=== PATIENT | female | born 1940 | race Caucasian/White ===

== ENCOUNTER 2016-09-22 | Outpatient (CLI) | payer MEDICARE, BC | END 2016-09-22 15:26 | disposition short-term general hospital (02) | CPT/HCPCS: A0425; A0429; A0888 ==

== ENCOUNTER 2017-06-27 14:13 | Emergency (ER) | payer MEDICARE, BC ==
--- NOTE | 2017-06-27 15:07 | XRAY Preliminary Report ---
Exam: XR CHEST 2 VIEW PA/LAT IMPRESSION: Normal 2-view chest radiography. [facility] SITE ID: [id number]
--- NOTE | 2017-06-27 15:22 | XRAY Report ---
EXAM: CHEST RADIOGRAPHY EXAM DATE: 06/27/2017 02:58 PM. CLINICAL HISTORY: Cough for one week. Chest pain. Chills. COMPARISON: 08/20/2009. TECHNIQUE: 2 views. FINDINGS: Lungs/Pleura: No focal opacities evident. No pleural effusion. No pneumothorax. Normal volumes. Mediastinum: Heart and mediastinal contours are unremarkable. Other: None. IMPRESSION: Normal 2-view chest radiography. [facility] Referring Provider Line: [phone] SITE ID: [id number]
[2017-06-27] MEDS ORDERED: ALBUTEROL NEB 2.5 MG/3 ML INH STA (18:04)
[2017-06-27] MEDS ORDERED: ALBUTEROL NEB 2.5 MG/3 ML INH ONE ×2 (18:20→22:26)
[2017-06-27 18:46] LABS: BASOPHILS % (AUTO) 0.2 %; EOSINOPHILS % (AUTO) 0.1 %; HCT - HEMATOCRIT 46.8 % (37.0-47.0); HGB - HEMOGLOBIN 15.1 g/dL (12.0-16.0); LYMPHOCYTES # (AUTO) 0.8 10^3/uL (1.5-3.5); LYMPHOCYTES % (AUTO) 4.7 %; MEAN CORPUSCULAR HEMOGLOBIN 28.2 pg (27.0-31.0); MEAN CORPUSCULAR HGB CONC 32.3 g/dL (32.0-36.0); MEAN CORPUSCULAR VOLUME 87.4 fL (81.0-99.0); MONOCYTES # (AUTO) 0.8 10^3/uL (0.0-1.0); MONOCYTES % (AUTO) 4.6 %; NEUTROPHILS # (AUTO) 14.9 10^3/uL (1.5-6.6); NEUTROPHILS % (AUTO) 90.4 %; RED BLOOD COUNT 5.35 10^6/uL (4.20-5.40); RED CELL DISTRIBUTION WIDTH 14.2 % (12.0-15.0); UNCORRECTED WHITE BLOOD COUNT 16.4 x10^3/uL; WHITE BLOOD COUNT 16.4 x10^3/uL (4.8-10.8)
[2017-06-27 18:52] LABS: CALCIUM 9.9 mg/dL (8.5-10.3); POTASSIUM 3.6 mmol/L (3.5-5.0)
[2017-06-27] MEDS ORDERED: BENZONATATE 100 MG CAPSULE PO STA (19:00)
[2017-06-27] MEDS ORDERED: guaiFENesin/DEXTROMETHORPHAN 10 ML UDC PO STA (19:00)
[2017-06-27] MEDS ORDERED: DEXAMETHASONE 10 MG/ML VIAL IVP STA (19:00)
[2017-06-27] MEDS ORDERED: LEVALBUTEROL 1.25 MG/0.5 ML NEB INH STA ×2 (19:00→19:43)
--- NOTE | 2017-06-27 19:03 | ED Physician Documentation ---
History of Present Illness - Stated complaint Stated Complaint: SOA,CHEST PX,COUGH - Chief complaint Chief Complaint: Resp - Additonal information Additional information: hx from pt 77 f hx asthma and afib sick with cough and soa for a week now with sharp chest to back pain for several days as well takes daily steroids saw PMD and had steroids inc and using alb q4h in addition to qvar no CXR etc no fever her INR was 1.8 within last week Review of Systems Constitutional: denies: Fever Cardiac: reports: Chest pain / pressure Respiratory: reports: Dyspnea, Cough, Wheezing GI: denies: Abdominal Pain, Nausea, Vomiting Musculoskeletal: reports: Extremity swelling (anabella symm). 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 HEENT: Cataracts, Tonsil/Adenoidectomy - Present Medications Home Medications: Ambulatory Orders Medication Instructions Recorded Confirmed Aspirin [Aspir 81] 81 mg PO DAILY 05/09/13 06/27/17 Lisinopril 10 mg PO DAILY 05/09/13 06/27/17 Metoprolol Succinate [Toprol Xl] 25 mg PO DAILY 05/09/13 06/27/17 Multivitamin [Multivitamins] 1 each PO DAILY 05/09/13 06/27/17 Sertraline [Zoloft] 100 mg PO DAILY 05/09/13 06/27/17 Triamterene/Hydrochlorothiazid 1 each PO DAILY 05/09/13 06/27/17 [Triamterene-Hctz 75-50 mg Tab] Vit D3-Vit K/Berberine/Hops 1 each PO DAILY 05/09/13 04/21/16 [Ostera Tablet] amLODIPine [Norvasc] 10 mg PO DAILY 05/09/13 04/21/16 Beclomethasone Dipropionate [Qvar] 8.7 gm IH BID 05/10/13 06/27/17 Bacillus Coagulans [Probiotic] 1 each PO DAILY 04/21/16 06/27/17 Omeprazole [PriLOSEC] 20 mg PO DAILY 04/21/16 06/27/17 Albuterol 2.5 mg INH Q4H PRN #30 neb 06/27/17 Azithromycin [Zithromax] 250 mg PO DAILY #4 tablet 06/27/17 predniSONE [Deltasone] 60 mg PO DAILY 5 Days tablet 06/27/17 - Allergies Allergies/Adverse Reactions: Allergies Allergy/AdvReac Type Severity Reaction Status Date / Time epinephrine Allergy Severe Respiratory Verified 06/27/17 14:29 codeine [Codeine] Allergy Intermediate Hives Verified 06/27/17 14:29 hydrocodone bitartrate * Allergy Intermediate Hives Verified 06/27/17 14:29 [From Vicodin] morphine Allergy Intermediate Hives Verified 06/27/17 14:29 oxycodone HCl * Allergy Intermediate Hives Verified 06/27/17 14:29 [From Percocet] Sulfa (Sulfonamide Allergy Mild Rash Verified 06/27/17 14:29 Antibiotics) Penicillins Allergy Unknown unsure Verified 06/27/17 14:29 methotrexate Allergy Unknown Verified 06/27/17 14:29 All Narcotics Allergy Intermediate Hives Uncoded 05/10/13 07:27 - Social History Does the pt smoke?: No Smoking Status: Never smoker Does the pt drink ETOH?: No Does the pt have substance abuse?: No - Immunizations Immunizations are current?: Yes PD ED PE NORMAL - Vitals Vital signs reviewed: Yes - General General: Alert and oriented X 3 - Neck Neck: Supple, no meningeal sign - Cardiac Cardiac: RRR - Respiratory Respiratory: No respiratory distress, Other (anabella tight wheezing) - Abdomen Abdomen: Soft, Non tender - Derm Derm: Normal color - Extremities Extremities: Other (anabella symm edema) - Neuro Neuro: Alert and oriented X 3, No motor deficit Results - Vitals Vitals: Vital Signs - 24 hr 06/27/17 06/27/17 06/27/17 14:23 18:14 18:21 Temperature 36.2 C L Heart Rate 70 100 70 Respiratory 20 19 14 Rate Blood Pressure 128/73 153/106 H O2 Saturation 97 69 L 06/27/17 06/27/17 06/27/17 18:41 19:14 19:23 Temperature 36.5 C Heart Rate 67 84 Respiratory 20 18 Rate Blood Pressure 155/66 H O2 Saturation 96 97 06/27/17 06/27/17 20:04 20:47 Temperature Heart Rate 79 85 Respiratory 19 20 Rate Blood Pressure 163/119 H O2 Saturation 97 Oxygen O2 Source Room air - EKG (time done) 1736 Rate: Rate (enter#) (68) Rhythm: Atrial fibrillation Intervals: Normal [place] QRS: Normal Ischemia: Non specific changes (sig artifact ) - Labs Labs: Laboratory Tests 06/27/17 06/27/17 06/27/17 17:50 17:50 17:50 WBC 16.4 H RBC 5.35 Hgb 15.1 Hct 46.8 MCV 87.4 MCH 28.2 MCHC 32.3 RDW 14.2 Plt Count 405 MPV 8.0 Neut # 14.9 H Lymph # 0.8 L [place] # 0.8 Eos # 0.0 Baso # 0.0 Absolute Nucleated RBC 0.00 Nucleated RBC % 0.0 Sodium 133 L Potassium 3.6 Chloride 91 L Carbon Dioxide 27 Anion Gap 15.0 H BUN 26 H Creatinine 1.0 Estimated GFR (MDRD) 54 L Glucose 126 H Calcium 9.9 Troponin I < 0.04 Influenza A (Rapid) Influenza B (Rapid) Influenza Types A,B Ag 06/27/17 19:00 WBC RBC Hgb Hct MCV MCH MCHC RDW Plt Count MPV Neut # Lymph # [place] # Eos # Baso # Absolute Nucleated RBC Nucleated RBC % Sodium Potassium Chloride Carbon Dioxide Anion Gap BUN Creatinine Estimated GFR (MDRD) Glucose Calcium Troponin I Influenza A (Rapid) Negative Influenza B (Rapid) Negative Influenza Types A,B Ag - - Rads (name of study) CXR Radiology: See rad report (NACPD) PD MEDICAL DECISION MAKING - ED course ED course: EKG s acute ischemia and neg trop after days of sx after 7 nebs and steroids she is doing better - still wheezing but moving air well and able to ambulate recommended admit but she decliens will dc with rx for nebs (she has machine but no medication for same just MDI which she cant use when this SOA) inc steroids and given underlying lung dz will rx ab for bronchitis in this case Departure - Departure Disposition: 01 Home, Self Care Clinical Impression: Bronchitis Asthma Qualifiers: Asthma severity: mild Asthma persistence: intermittent Asthma complication type : with acute exacerbation Qualified Code(s): J45.21 - Mild intermittent asthma with (acute) exacerbation Condition: Good Instructions: ED Bronchitis Asthmatic Follow-Up: Joby Wisdom MD [Primary Care Provider] - Prescriptions: Albuterol 2.5 mg INH Q4H PRN #30 neb PRN Reason: Wheezing Azithromycin [Zithromax] 250 mg PO DAILY #4 tablet predniSONE [Deltasone] 60 mg PO DAILY 5 Days tablet Comments: Your heart checked out OK The xray did not show pneumonia It seems you have bronchitis which has aggravated your asthma After 7 nebulizer treatments here, your are better but still wheezing I recommended that you be admitted but you declined because you need to take care of your dog SO I have prescribed solution for your nebulizer machine, increased dose of steroids for 5 days and antibiotics. Use the nebulizer every 4 hr for the next three days then as needed The antibiotics may increase your INR so be sure to get it rechecked this week Follow up with your PMD as soon as possible Return if worse at any time Also your blood pressure was high so please get that rechecked
[2017-06-27] MEDS ORDERED: DEXAMETHASONE 10 MG/ML VIAL ONE (19:13)
[2017-06-27] MEDS ORDERED: guaiFENesin/DEXTROMETHORPHAN 10 ML UDC ONE (19:13)
[2017-06-27] MEDS ORDERED: BENZONATATE 100 MG CAPSULE PO ONE (19:13)
[2017-06-27] MEDS ORDERED: SODIUM CHLORIDE INHALATION 3 ML NEB ONE ×4 (19:17→20:07)
[2017-06-27] MEDS ORDERED: LEVALBUTEROL 1.25 MG/0.5 ML NEB INH ONE ×2 (19:17→20:06)
[2017-06-27 20:48] VITALS: BP 163/119
[2017-06-27] MEDS ORDERED: AZITHROMYCIN 250 MG TABLET PO STA (21:47)
[2017-06-27] MEDS ORDERED: AZITHROMYCIN 250 MG TABLET PO ONE (22:01)
== END 2017-06-27 22:30 | disposition home or self-care (01) ==
LOC: ED 14:13
DX: J45.21 Mild intermittent asthma with (acute) exacerbation (principal); I48.91 Unspecified atrial fibrillation; I10 Essential (primary) hypertension; K21.9 Gastro-esophageal reflux disease without esophagitis; M79.7 Fibromyalgia; Z79.82 Long term (current) use of aspirin
CPT/HCPCS: 36415; 71020; 80048; 84484; 85025; 87275; 87276; 93005; 94640; 96374; 99284; A9270; J7613

== ENCOUNTER 2017-06-30 12:42 | Outpatient (CLI) | payer MEDICARE, BC | END 2017-06-30 12:43 | disposition critical access hospital (66) | LOC: EMS 12:42 | PROVIDERS: ATTEND Surgery | DX: R06.00 Dyspnea, unspecified (principal) | CPT/HCPCS: A0425; A0427 ==

== ENCOUNTER 2017-06-30 12:51 | Inpatient (IN) | payer MEDICARE, BC ==
[2017-06-30 13:31] LABS: BASOPHILS # (AUTO) 0.1 10^3/uL (0.0-0.1); BASOPHILS % (AUTO) 0.4 %; EOSINOPHILS % (AUTO) 0.1 %; HCT - HEMATOCRIT 41.2 % (37.0-47.0); HGB - HEMOGLOBIN 13.6 g/dL (12.0-16.0); LYMPHOCYTES # (AUTO) 0.7 10^3/uL (1.5-3.5); LYMPHOCYTES % (AUTO) 5.3 %; MEAN CORPUSCULAR HEMOGLOBIN 28.6 pg (27.0-31.0); MEAN CORPUSCULAR HGB CONC 32.9 g/dL (32.0-36.0); MEAN CORPUSCULAR VOLUME 86.9 fL (81.0-99.0); MEAN PLATELET VOLUME 7.7 fL (7.9-10.8); MONOCYTES # (AUTO) 1.5 10^3/uL (0.0-1.0); MONOCYTES % (AUTO) 10.8 %; NEUTROPHILS # (AUTO) 11.7 10^3/uL (1.5-6.6); NEUTROPHILS % (AUTO) 83.4 %; RED BLOOD COUNT 4.74 10^6/uL (4.20-5.40); RED CELL DISTRIBUTION WIDTH 14.5 % (12.0-15.0); UNCORRECTED WHITE BLOOD COUNT 14.1 x10^3/uL; WHITE BLOOD COUNT 14.1 x10^3/uL (4.8-10.8)
--- NOTE | 2017-06-30 13:41 | ED Physician Documentation ---
PD HPI DYSPNEA - Stated complaint Stated Complaint: SOA - Chief complaint Chief Complaint: Resp - History obtained from History obtained from: Patient - History of Present Illness Timing - duration: Days (several) Timing - details: Gradual onset Pain level max: 0 Pain level now: 0 Inciting event(s): URI Improved by: Rest Worsened by: Exertion Associated symptoms: Cough, Wheezing, Chest pain / discomfort (tightness). No: Fever Recently seen: Emergency Dept (3 days ago for same) - Additional information Additional information: Patient is a 77-year-old female with a history of COPD who presents to the emergency department with wheezing, congestion for the past several days. Seen here several days ago for same, started on steroids azithromycin and nebulizer treatments. She did not want to be admitted at that time. She then followed up with her doctor but states she is not getting any better. Unable to walk more than a few steps without stopping. Using her nebulizer every 3 hours at home. Also taking steroids at home. No fevers. Review of Systems Ten Systems: 10 systems reviewed and negative Constitutional: denies: Fever, Chills Ears: denies: Ear pain Throat: denies: Sore throat Cardiac: reports: Chest pain / pressure (tightness) GI: denies: Abdominal Pain, Nausea, Vomiting, Diarrhea Skin: denies: Rash Musculoskeletal: denies: Neck pain Neurologic: denies: Headache PD PAST MEDICAL HISTORY - Past Medical History Cardiovascular: Hypertension, Atrial fibrillation Respiratory: Asthma, Other Endocrine/Autoimmune: None GI: GERD : None HEENT: Chronic hearing loss Psych: Depression Musculoskeletal: Osteoarthritis, Fibromyalgia, Osteoporosis, Other Derm: None - Past Surgical History Past Surgical History: Yes General: Appendectomy, Hiatal hernia repair, Colonoscopy 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 HEENT: Cataracts, Tonsil/Adenoidectomy - Present Medications Home Medications: Ambulatory Orders Medication Instructions Recorded Confirmed Aspirin [Aspir 81] 81 mg PO DAILY 05/09/13 06/30/17 Lisinopril 10 mg PO DAILY 05/09/13 06/30/17 Multivitamin [Multivitamins] 1 each PO DAILY 05/09/13 06/30/17 Sertraline [Zoloft] 100 mg PO 2100 05/09/13 06/30/17 amLODIPine [Norvasc] 10 mg PO DAILY 05/09/13 06/30/17 Beclomethasone Dipropionate [Qvar] 8.7 gm IH BID 05/10/13 06/30/17 Bacillus Coagulans [Probiotic] 1 each PO DAILY 04/21/16 06/30/17 Omeprazole [PriLOSEC] 20 mg PO DAILY 04/21/16 06/30/17 Albuterol 2.5 mg INH Q4H PRN #30 neb 06/27/17 06/30/17 Azithromycin [Zithromax] 250 mg PO DAILY #4 tablet 06/27/17 06/30/17 predniSONE [Deltasone] 60 mg PO DAILY 5 Days tablet 06/27/17 06/30/17 Baclofen 10 mg PO BID 06/30/17 06/30/17 Benzonatate 100 mg PO TID PRN 06/30/17 06/30/17 Cetirizine [ZyrTEC] 10 mg PO DAILY 06/30/17 06/30/17 Ipratropium/Albuterol Sulfate 3 ml INH Q6H PRN 06/30/17 06/30/17 [Iprat-Albut 0.5-3(2.5) mg/3 ml] Leflunomide 20 mg PO DAILY 06/30/17 06/30/17 Magnesium Oxide 500 mg PO DAILY 06/30/17 06/30/17 Metoprolol Succinate 75 mg PO DAILY PM 06/30/17 06/30/17 Warfarin Sodium [Warfarin Sodium] 5 mg PO DAILY 06/30/17 06/30/17 - Allergies Allergies/Adverse Reactions: Allergies Allergy/AdvReac Type Severity Reaction Status Date / Time epinephrine Allergy Severe Respiratory Verified 06/30/17 12:58 codeine [Codeine] Allergy Intermediate Hives Verified 06/30/17 12:58 hydrocodone bitartrate * Allergy Intermediate Hives Verified 06/30/17 12:58 [From Vicodin] morphine Allergy Intermediate Hives Verified 06/30/17 12:58 oxycodone HCl * Allergy Intermediate Hives Verified 06/30/17 12:58 [From Percocet] Sulfa (Sulfonamide Allergy Mild Rash Verified 06/30/17 12:58 Antibiotics) Penicillins Allergy Unknown unsure Verified 06/30/17 12:58 methotrexate Allergy Unknown Verified 06/30/17 12:58 All Narcotics Allergy Intermediate Hives Uncoded 06/30/17 12:58 - Social History Does the pt smoke?: No Smoking Status: Never smoker Does the pt drink ETOH?: No Does the pt have substance abuse?: No - Immunizations Immunizations are current?: Yes - POLST Patient has POLST: No PD ED PE NORMAL - Vitals Vital signs reviewed: Yes - General General: Alert and oriented X 3, Other (pursed lip breathing) - HEENT HEENT: PERRL, Moist mucous membranes - Neck Neck: Supple, no meningeal sign - Cardiac Cardiac: RRR - Respiratory Respiratory: Other (tachypneic. very diminished BS with wheezing) - Abdomen Abdomen: Soft, Non tender, Non distended - Derm Derm: Warm and dry - Extremities Extremities: No deformity - Neuro Neuro: Alert and oriented X 3 - Psych Psych: Normal mood, Normal affect Results - Vitals Vitals: Vital Signs - 24 hr 06/30/17 06/30/17 06/30/17 12:52 14:05 15:01 Temperature 36.4 C L Heart Rate 73 88 66 Respiratory 24 18 24 Rate Blood Pressure 168/145 H 148/101 H O2 Saturation 96 100 06/30/17 15:30 Temperature Heart Rate 70 Respiratory 18 Rate Blood Pressure 154/91 H O2 Saturation 100 Oxygen O2 Source Room air - EKG (time done) 1255 Rate: Rate (enter#) (76) Rhythm: NSR [place]: Normal Intervals: Normal [place] QRS: Normal Ischemia: Normal ST segments - Labs Labs: Laboratory Tests 06/30/17 06/30/17 06/30/17 13:22 13:22 13:22 WBC 14.1 H RBC 4.74 Hgb 13.6 Hct 41.2 MCV 86.9 MCH 28.6 MCHC 32.9 RDW 14.5 Plt Count 311 MPV 7.7 L Neut # 11.7 H Lymph # 0.7 L [place] # 1.5 H Eos # 0.0 Baso # 0.1 Absolute Nucleated RBC 0.00 Nucleated RBC % 0.0 Sodium 134 L Potassium 3.7 Chloride 96 L Carbon Dioxide 25 Anion Gap 13.0 BUN 34 H Creatinine 0.9 Estimated GFR (MDRD) 61 L Glucose 111 H Calcium 9.2 Total Bilirubin 0.6 AST 28 ALT 29 Alkaline Phosphatase 50 Troponin I < 0.04 Total Protein 6.5 L Albumin 3.4 Globulin 3.1 Albumin/Globulin Ratio 1.1 Lipase 34 - Rads (name of study) cxr Radiology: Prelim report reviewed, EMP read contemporaneously, See rad report ( No acute disease) PD MEDICAL DECISION MAKING - ED course Complexity details: reviewed old records, reviewed results, re-evaluated patient , considered differential, d/w patient ED course: Patient is a 77-year-old female who presents to the emergency department with continued wheezing, appears to be a COPD flare. No pneumonia on chest x-ray. Does have a leukocytosis, but has also been on steroids. She did improve slightly with nebulizer treatment but as she is using her nebulizer increasingly frequently at home and she becomes very short of breath with even minimal exertion in the emergency department despite nebulizer treatment, will place her in observation for further care. Discussed the case with Dr. Vences, hospitalist who accepts. This document was made in part using voice recognition software. While efforts are made to proofread this document, sound alike and grammatical errors may occur. Departure - Departure Disposition: ED Place in Observation Clinical Impression: COPD exacerbation Leukocytosis Qualifiers: Leukocytosis type: unspecified Qualified Code(s): D72.829 - Elevated white blood cell count, unspecified Condition: Stable Discharge Date/Time: 06/30/17 16:00
--- NOTE | 2017-06-30 13:41 | XRAY Preliminary Report ---
Exam: XR CHEST 1 VIEW IMPRESSION: Normal single view chest. [facility] SITE ID: [id number]
[2017-06-30 13:44] LABS: ALBUMIN/GLOBULIN RATIO 1.1 (1.0-2.2); BILIRUBIN,TOTAL 0.6 mg/dL (0.2-1.0); CALCIUM 9.2 mg/dL (8.5-10.3); CREATININE 0.9 mg/dL (0.4-1.0); POTASSIUM 3.7 mmol/L (3.5-5.0); TOTAL PROTEIN 6.5 g/dL (6.7-8.2)
--- NOTE | 2017-06-30 13:45 | XRAY Report ---
EXAM: CHEST RADIOGRAPHY EXAM DATE: 06/30/2017 01:17 PM. CLINICAL HISTORY: Chest pain. COMPARISON: 06/27/2017. TECHNIQUE: 1 view. FINDINGS: Lungs/Pleura: No focal opacities evident. No pleural effusion. No pneumothorax. Mediastinum: Within exam limitations, the cardiomediastinal contour is normal. Other: None. IMPRESSION: Normal single view chest. [facility] Referring Provider Line: [phone] SITE ID: [id number]
[2017-06-30] MEDS ORDERED: IPRATROPIUM/ALBUTEROL 3 ML NEB INH STA (13:49)
[2017-06-30] MEDS ORDERED: methylPREDNISolone SUCCINATE 125 MG/2 ML VIAL IVP STA (13:49)
[2017-06-30] MEDS ORDERED: SODIUM CHLORIDE 0.9% 1,000 ML IV ONE (13:55)
[2017-06-30] MEDS ORDERED: IPRATROPIUM/ALBUTEROL 3 ML NEB INH ONE (14:02)
[2017-06-30] MEDS ORDERED: ACETAMINOPHEN 325 MG TABLET PO PRN (15:36)
[2017-06-30] MEDS ORDERED: ONDANSETRON 4 MG/2 ML VIAL IVP PRN (15:36)
[2017-06-30] MEDS ORDERED: SODIUM CHLORIDE FLUSH 0.9% 10 ML SYRINGE IVP PRN (15:36)
[2017-06-30] MEDS ORDERED: ALBUTEROL NEB 2.5 MG/3 ML INH PRN (15:50)
--- NOTE | 2017-06-30 15:55 | HISTORY & PHYSICAL EXAMINATION ---
Chief Complaint - Chief Complaint Chief Complaint: cough, shortness of breathing, difficult to walk History of Present Illness - Admitted From Admitted From:: ER - History Obtained From History obtained from: Pt - History of Present Illness HPI Comment/Other: This is a 77-year-old female with a past medical history significance for COPD, essential tremor, polymyalgia Rheumatica, Obesity, HTN, AFib with Coumadin, Asthma, GERD, Chronic hearing loss, Depression, Osteoarthritis, Osteoporsis, Fibromyalgia, who present ER for evaluation of wheezing, shortness of breathing, Cough. Patient report she came to ER several days ago, she got the treatment but she feel not better. She report she was unable to walk more than a few steps without stopping. She report she used nebulizer and steroids at home. She report some chest tightness from anterior radiated to her back. She report cough without much sputum. She denies fever, chill, night sweating. She denies headache, abdominal pain, nausea, vomiting, diarrhea. No dysuria, hematuria, vision issue. Lab test reveals elevated WBC to 14.1. CXR is unremarkable. Pt is admitted for evaluation of COPD exacerbation. 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 HEENT: reports: Cataracts, Tonsil/Adenoidectomy - Family & Social History Living arrangement: At home Living Situation: Alone - Substance History Use: Uses substance without health or social issues: NONE Abuse: Recurrent use of substance despite neg consequences: NONE - POLST Patient has POLST: No POLST Status: DNR Meds/Allgy - Home Medications Home Medications: Ambulatory Orders Medication Instructions Recorded Confirmed Lisinopril 10 mg PO DAILY 05/09/13 06/30/17 Multivitamin [Multivitamins] 1 each PO DAILY 05/09/13 06/30/17 Sertraline [Zoloft] 100 mg PO 2100 05/09/13 06/30/17 amLODIPine [Norvasc] 10 mg PO DAILY 05/09/13 06/30/17 Bacillus Coagulans [Probiotic] 1 each PO DAILY 04/21/16 06/30/17 Albuterol 2.5 mg INH Q4H PRN #30 neb 06/27/17 06/30/17 predniSONE [Deltasone] 60 mg PO DAILY 5 Days tablet 06/27/17 06/30/17 Baclofen 10 mg PO TID PRN 06/30/17 07/01/17 Benzonatate 100 mg PO TID PRN 06/30/17 06/30/17 Cetirizine [ZyrTEC] 10 mg PO DAILY 06/30/17 06/30/17 Ipratropium/Albuterol Sulfate 3 ml INH Q6H PRN 06/30/17 06/30/17 [Iprat-Albut 0.5-3(2.5) mg/3 ml] Leflunomide 20 mg PO DAILY 06/30/17 06/30/17 Magnesium Oxide 500 mg PO DAILY 06/30/17 06/30/17 Metoprolol Succinate 75 mg PO DAILY PM 06/30/17 06/30/17 Warfarin Sodium [Warfarin Sodium] 5 mg PO DAILY 06/30/17 06/30/17 Beclomethasone 80 Mcg [Qvar 80] 1 puffs INH BID 07/01/17 07/01/17 Calcium Carbonate/Vitamin D3 1 each PO DAILY 07/01/17 07/01/17 [Calcium 600 + Vit D 400 Tablet] Garlic 500 mg PO DAILY 07/01/17 07/01/17 Triamterene/Hydrochlorothiazid 1 tab PO DAILY 07/01/17 07/01/17 [Triamterene-Hctz 37.5-25 mg Tb] Vitamin B Complex 1 each PO DAILY 07/01/17 07/01/17 - Allergies Allergies/Adverse Reactions: Allergies Allergy/AdvReac Type Severity Reaction Status Date / Time epinephrine Allergy Severe Respiratory Verified 06/30/17 12:58 codeine [Codeine] Allergy Intermediate Hives Verified 06/30/17 12:58 hydrocodone bitartrate * Allergy Intermediate Hives Verified 06/30/17 12:58 [From Vicodin] morphine Allergy Intermediate Hives Verified 06/30/17 12:58 oxycodone HCl * Allergy Intermediate Hives Verified 11/17/17 12:58 [From Percocet] Sulfa (Sulfonamide Allergy Mild Rash Verified 06/30/17 12:58 Antibiotics) Penicillins Allergy Unknown unsure Verified 06/30/17 12:58 methotrexate Allergy Unknown Verified 06/30/17 12:58 All Narcotics Allergy Intermediate Hives Uncoded 06/30/17 12:58 Review of Systems - Constitutional Constitutional: reports: Weakness. denies: Fatigue, Fever, Chills, Malaise, Diaphoresis, Night sweats - Eyes Eyes: denies: Pain, Irritation, Amaurosis, Blurred vision, Spots in vision, Field loss, Vision loss, Dipolpia - Ears, Nose & Throat Ears, Nose & Throat: reports: Hearing loss. denies: Ear pain, Hearing aids, Tinnitus, Vertigo, Nasal pain, Nasal discharge, Nosebleeds, Postnasal drainage, Sore throat, Mouth lesions, Bleeding gums - Cardiovascular Cariovascular: denies: Irregular heart rate, Palpitations, Chest pain, Edema, Lightheadedness, Syncope, Exertional dyspnea, Decr. exercise tolerance - Respiratory Respiratory: reports: Cough, Sputum production, Wheezing, SOB with exertion. denies: Snoring, Hemoptysis, Orthopnea, SOB at rest, Apnea, Stridor - Gastrointestinal Gastrointestinal: denies: Abdominal pain, Abdominal distention, Constipation, Diarrhea, Change in bowel habits, Rectal bleeding, Black stools, Bloody stools, Nausea, Vomiting, Ck blood emesis, Coffee grounds emesis - Genitourinary Genitourinary: denies: Dysuria, Frequency, Urgency, Hematuria, Incontinence, Flank pain, Urethral discharge - Musculoskeletal Musculoskeletal: denies: Muscle pain, Back pain, Muscle aches, Stiffness, Limited range of motion, Muscle weakness, Gout, Joint pain - Integumentary Integumentary: denies: Rash, Pruritis, Lesions, Dryness, Lumps - Neurological Neurological: denies: Focal weakness, Headache, Dizziness, Numbness, Memory problems, Pre-existing deficit, Abnormal gait, Seizures, Incoordination, Slurred speech - Psychiatric Psychiatric: denies: Depression, Anxiety, Suicidal, Delusions, Hallucinations, Homicidal - Endocrine Endocrine: denies: Polyuria, Polydypsia, Polyphagia, Intolerance to cold - Hematologic/Lymphatic Hematologic/Lymphatic: denies: Anemia, Bruising, Petechiae, Blood clots, Lymphadenopathy, Bleeding tendencies Exam - Vital Signs Reviewed Vital Signs: Yes Vital Signs: Vital Signs x48h Temp Pulse Resp BP Pulse Ox 06/30/17 15:01 66 24 148/101 H 100 06/30/17 14:05 88 18 06/30/17 12:52 36.4 C L 73 24 168/145 H 96 - Physical Exam General Appearance: positive: No acute distress, Alert. negative: Lethargic Eyes Bilateral: positive: Normal inspection, PERRL, No lid inflammation, Conjunctivae nml ENT: positive: ENT inspection nml, Pharynx nml, No signs of dehydration. negative: Purulent nasal drainage, Pharyngeal erythema, Oral lesions Neck: positive: Nml inspection, Thyroid nml, Trachea midline. negative: Thyromegaly, Lymphadenopathy (R), Lymphadenopathy (L), Stiff neck, Carotid bruit , Swelling/bruising, Tracheal deviation Respiratory: positive: Chest non-tender, No respiratory distress, Wheezes. negative: Rales, Rhonchi Cardiovascular: positive: Regular rate & rhythm, No murmur, No gallop. negative : Irregularly irregular, Extrasystoles, Tachycardia, Bradycardia, Systolic murmur, Diastolic murmur Peripheral Pulses: positive: 2+ Abdomen: positive: Non-tender, Nml bowel sounds. negative: Tenderness, Guarding , Rebound Back: positive: Nml inspection. negative: CVA tenderness (R), CVA tenderness (L ) Skin: positive: Color nml, No rash, Warm, Dry. negative: Cyanosis, Diaphoresis , Pallor, Skin rash Extremities: positive: Non-tender, Full ROM, Nml appearance. negative: Calf tenderness, Joint swelling, Jose's sign/cords Neurologic/Psychiatric: positive: Oriented x3, Motor nml, Sensation nml, Mood/ affect nml, Weakness. negative: Sensory loss, Facial droop, Slurred/abnml speech, Depressed mood/affect Conclusion/Plan - Problem List (1) COPD exacerbation Conclusion/Plan: pt is wheezing, SOB, hx of COPD, pt feel better after treatment of INH and steroid continue Duoneb solu-metrol O2 NC PRN, RT consult continue vital, tele monitor (2) Afib Conclusion/Plan: stable HR, continue Coumadin check PT/INR continue tele, vital monitor (3) Essential tremor Conclusion/Plan: pt report she has essential tremor since she was 13 yrs. continue home regime, continue support (4) Polymyalgia rheumatica Conclusion/Plan: pain is good control. pt took Steroid 20 mg at home now pt has solu-metrol for COPD exacerbation, continue current treatment (5) HTN (hypertension) Conclusion/Plan: stable, resume home meds vital monitor (6) Asthma Conclusion/Plan: since stable, after treatment with steroid and INH Abulteral PRN (7) Osteoarthritis Conclusion/Plan: pain control, support. - Lab Results Fish Bones: 07/01/17 05:53 07/01/17 05:53 Issues/Core Measures - Anticipated LOS Anticipated Stay Length: Less than 2 midnights (expected less than 2 midnights)
[2017-06-30] MEDS: IPRATROPIUM/ALBUTEROL 3 ML NEB INH PRN (19:47)
[2017-06-30] MEDS: BACLOFEN 10 MG TABLET PO SCH (21:05)
[2017-06-30] MEDS: SODIUM CHLORIDE FLUSH 0.9% 10 ML SYRINGE IVP SCH (21:06)
[2017-06-30] MEDS: methylPREDNISolone SUCCINATE 40 MG/ML VIAL IVP SCH (21:06)
[2017-07-01] MEDS: methylPREDNISolone SUCCINATE 40 MG/ML VIAL IVP SCH ×3 (05:54→21:14)
[2017-07-01] MEDS: SODIUM CHLORIDE FLUSH 0.9% 10 ML SYRINGE IVP SCH ×3 (05:54→21:13)
[2017-07-01 06:18] LABS: BASOPHILS % (AUTO) 0.2 %; HCT - HEMATOCRIT 40.3 % (37.0-47.0); HGB - HEMOGLOBIN 13.1 g/dL (12.0-16.0); LYMPHOCYTES # (AUTO) 0.3 10^3/uL (1.5-3.5); LYMPHOCYTES % (AUTO) 4.1 %; MEAN CORPUSCULAR HEMOGLOBIN 28.5 pg (27.0-31.0); MEAN CORPUSCULAR HGB CONC 32.5 g/dL (32.0-36.0); MEAN CORPUSCULAR VOLUME 87.7 fL (81.0-99.0); MONOCYTES # (AUTO) 0.3 10^3/uL (0.0-1.0); NEUTROPHILS # (AUTO) 6.6 10^3/uL (1.5-6.6); NEUTROPHILS % (AUTO) 91.7 %; RED BLOOD COUNT 4.59 10^6/uL (4.20-5.40); RED CELL DISTRIBUTION WIDTH 14.3 % (12.0-15.0); UNCORRECTED WHITE BLOOD COUNT 7.2 x10^3/uL; WHITE BLOOD COUNT 7.2 x10^3/uL (4.8-10.8)
[2017-07-01 06:35] LABS: ALBUMIN/GLOBULIN RATIO 1.2 (1.0-2.2); BILIRUBIN,TOTAL 0.6 mg/dL (0.2-1.0); CALCIUM 8.9 mg/dL (8.5-10.3); CREATININE 0.8 mg/dL (0.4-1.0); MAGNESIUM 1.9 mg/dL (1.7-2.8); POTASSIUM 3.7 mmol/L (3.5-5.0); TOTAL PROTEIN 6.4 g/dL (6.7-8.2)
[2017-07-01] MEDS: POLYETHYLENE GLYCOL 3350 17 GM PACKET PO SCH (08:40)
[2017-07-01] MEDS: LACTOB/S.THERMOPHL/BIFIDO CAPSULE PO SCH (08:55)
[2017-07-01] MEDS: LISINOPRIL 5 MG TABLET PO SCH (08:55)
[2017-07-01] MEDS: LEFLUNOMIDE 20 MG PO SCH (08:55)
[2017-07-01] MEDS: AZITHROMYCIN 250 MG TABLET PO SCH (08:55)
[2017-07-01] MEDS: amLODIPine 5 MG TABLET PO SCH (08:55)
[2017-07-01] MEDS: SERTRALINE 50 MG TABLET PO SCH (08:55)
[2017-07-01] MEDS: MULTIVITAMIN TABLET PO SCH (08:56)
[2017-07-01] MEDS: FAMOTIDINE 20 MG TABLET PO SCH (08:56)
[2017-07-01] MEDS: BACLOFEN 10 MG TABLET PO SCH ×2 (08:56→21:16)
[2017-07-01] MEDS: METOPROLOL SUCCINATE 25 MG TABLET PO SCH (08:56)
[2017-07-01] MEDS ORDERED: ENOXAPARIN 40 MG/0.4 ML SYRINGE SUBQ SCH (09:00)
[2017-07-01] MEDS ORDERED: ASPIRIN EC 81 MG TABLET PO SCH (09:00)
[2017-07-01] MEDS: VIT D3 VIT K PO SCH (09:44)
[2017-07-01] MEDS: HOPS PO SCH (09:44)
[2017-07-01] MEDS: BERBERINE PO SCH (09:44)
[2017-07-01] MEDS ORDERED: BENZONATATE 100 MG CAPSULE PO PRN (10:13)
[2017-07-01] MEDS: CETIRIZINE 10 MG TABLET PO SCH (12:09)
[2017-07-01] MEDS ORDERED: WARFARIN 5 MG TABLET PO SCH (14:00)
[2017-07-01] MEDS: IPRATROPIUM/ALBUTEROL 3 ML NEB INH PRN ×2 (14:15→18:10)
--- NOTE | 2017-07-01 15:01 | PROVIDER PROGRESS NOTE ---
Subjective - Prog Note Date Prog Note Date: 07/01/17 - Subjective Pt reports feeling: Improved Subjective: pt state she feel better breathing. no chest pain, or other complains reported Current Medications - Current Medications Current Medications: Active Medications Acetaminophen (Tylenol) 650 mg PO Q4HR PRN PRN Reason: Pain 1 to 4 Albuterol () 2.5 mg INH Q4H PRN PRN Reason: Wheezing Last Admin: 07/01/17 00:09 Dose: 2.5 mg Albuterol/Ipratropium (Duoneb) 3 ml INH Q4HR PRN PRN Reason: Wheezing Last Admin: 07/01/17 14:15 Dose: 3 ml Amlodipine Besylate (Norvasc) 10 mg PO DAILY [facility] Last Admin: 07/01/17 08:55 Dose: 10 mg Aspirin (Ecotrin) 81 mg PO DAILY [facility] Last Admin: 07/01/17 08:56 Dose: 81 mg Azithromycin (Zithromax) 500 mg PO DAILY [facility] Stop: 07/02/17 23:00 Last Admin: 07/01/17 08:55 Dose: 500 mg Baclofen (Lioresal) 10 mg PO BID [facility] Last Admin: 07/01/17 08:56 Dose: 10 mg Benzonatate (Tessalon) 100 mg PO TID PRN PRN Reason: Cough Last Admin: 07/01/17 12:10 Dose: 100 mg Calcium Carbonate/Glycine (Tums) 500 mg PO DAILY [facility] Cetirizine HCl (Zyrtec) 10 mg PO DAILY [facility] Last Admin: 07/01/17 12:09 Dose: 10 mg Cholecalciferol (Vitamin D3) 400 unit PO DAILY [facility] Enoxaparin Sodium (Lovenox) 40 mg SUBQ DAILY [facility] Last Admin: 07/01/17 08:56 Dose: 40 mg Famotidine (Pepcid) 20 mg PO DAILY [facility] Last Admin: 07/01/17 08:56 Dose: 20 mg Lactobacil/Bifidobact/Streptococcus (Vsl#3) 1 cap PO DAILY [facility] Last Admin: 07/01/17 08:55 Dose: 1 cap Lisinopril (Zestril) 10 mg PO DAILY [facility] Last Admin: 07/01/17 08:55 Dose: 10 mg [facility]esium [facility] (Mag Ox) [facility] Methylprednisolone (Solu-Medrol (40mg Vial)) 60 mg IVP TID [facility] Last Admin: 07/01/17 14:25 Dose: 60 mg Metoprolol Succinate (Toprol Xl) 25 mg PO DAILY [facility] Last Admin: 07/01/17 08:56 Dose: 25 mg Multivitamins (Theragran) 1 tab PO DAILYWM [facility] Last Admin: 07/01/17 08:56 Dose: 1 tab Non-Formulary Medication (Vit D3-Vit K/Berberine/Hops [Ostera Tablet]) 1 each PO DAILY [facility] Last Admin: 07/01/17 09:44 Dose: Not Given Ondansetron HCl (Zofran Inj) 4 mg IVP Q6HR PRN PRN Reason: Nausea / Vomiting Patient Own Medication (Patient Own Medication) 1 each PO DAILY [facility] Last Admin: 07/01/17 08:55 Dose: 1 each Patient Own Medication (Patient Own Medication) 1 each PO DAILY [facility] Vitamin B Complex 1 each PO DAILY [facility] Polyethylene Glycol (Miralax) 17 gm PO DAILY [facility] Last Admin: 07/01/17 08:40 Dose: Not Given Sertraline HCl (Zoloft) 100 mg PO DAILY [facility] Last Admin: 07/01/17 08:55 Dose: 100 mg Sodium Chloride (Normal Saline Flush 0.9%) 10 ml IVP PRN PRN PRN Reason: NEEDED PER PROVIDER ORDERS Sodium Chloride (Normal Saline Flush 0.9%) 10 ml IVP Q8HR [facility] Last Admin: 07/01/17 14:25 Dose: 10 ml Triamterene/HCTZ (Dyazide) 1 cap PO DAILY [facility] Warfarin Sodium (Coumadin) 5 mg PO QDWARFARIN [facility] Lisinopril 10 mg PO DAILY 05/09/13 Multivitamin [Multivitamins] 1 each PO DAILY 05/09/13 Sertraline [Zoloft] 100 mg PO 2100 05/09/13 amLODIPine [Norvasc] 10 mg PO DAILY 05/09/13 Bacillus Coagulans [Probiotic] 1 each PO DAILY 04/21/16 Baclofen 10 mg PO TID PRN 06/30/17 Benzonatate 100 mg PO TID PRN 06/30/17 Cetirizine [ZyrTEC] 10 mg PO DAILY 06/30/17 Ipratropium/Albuterol Sulfate [Iprat-Albut 0.5-3(2.5) mg/3 ml] 3 ml INH Q6H PRN 06/30/17 Leflunomide 20 mg PO DAILY 06/30/17 Magnesium Oxide 500 mg PO DAILY 06/30/17 Metoprolol Succinate 75 mg PO DAILY PM 06/30/17 Warfarin Sodium [Warfarin Sodium] 5 mg PO DAILY 06/30/17 Beclomethasone 80 Mcg [Qvar 80] 1 puffs INH BID 07/01/17 Calcium Carbonate/Vitamin D3 [Calcium 600 + Vit D 400 Tablet] 1 each PO DAILY Garlic 500 mg PO DAILY 07/01/17 Triamterene/Hydrochlorothiazid [Triamterene-Hctz 37.5-25 mg Tb] 1 tab PO DAILY 07/01/17 Vitamin B Complex 1 each PO DAILY 07/01/17 Objective - Vital Signs/Intake & Output Reviewed Vital Signs: Yes Vital Signs: Vital Signs x48h Temp Pulse Pulse Resp BP Pulse Ox 07/01/17 14:16 88 18 07/01/17 11:52 36.9 C 79 19 130/54 L 95 Intake & Output: Intake & Output 06/28/17 06/29/17 06/30/17 07/01/17 23:59 23:59 23:59 23:59 Intake Total 240 Balance 240 - Objective General Appearance: positive: No acute distress, Alert. negative: Lethargic Eyes Bilateral: positive: Normal inspection, PERRL, No lid inflammation, Conjunctivae nml ENT: positive: ENT inspection nml, Pharynx nml, No signs of dehydration. negative: Purulent nasal drainage, Pharyngeal erythema, Oral lesions Neck: positive: Nml inspection, Thyroid nml, Trachea midline. negative: Thyromegaly, Lymphadenopathy (R), Lymphadenopathy (L), Stiff neck, Carotid bruit , Swelling/bruising, Tracheal deviation Respiratory: positive: Chest non-tender, No respiratory distress, Wheezes. negative: Rales, Rhonchi Cardiovascular: positive: Regular rate & rhythm, No murmur, No gallop. negative : Irregularly irregular, Extrasystoles, Tachycardia, Bradycardia, Systolic murmur, Diastolic murmur Peripheral Pulses: 2+ Radial (R), 2+ Radial (L), 2+ Dorsalis pedis (R), 2+ Dorsalis pedis (L) Abdomen: positive: Non-tender, Nml bowel sounds, No distention. negative: Tenderness, Guarding, Rebound Back: positive: Nml inspection. negative: CVA tenderness (R), CVA tenderness (L ) Skin: positive: Color nml, No rash, Warm, Dry. negative: Cyanosis, Diaphoresis , Pallor, Skin rash Extremities: positive: Non-tender, Full ROM, Nml appearance. negative: Calf tenderness, Joint swelling, Jose's sign/cords Neurologic/Psychiatric: positive: Oriented x3, Motor nml, Sensation nml, Mood/ affect nml. negative: Sensory loss, Facial droop, Slurred/abnml speech, Depressed mood/affect - Lab Results Fish Bones: 07/01/17 05:53 07/01/17 05:53 Assessment/Plan - Problem List (1) COPD exacerbation Impression: (1) COPD exacerbation Conclusion/Plan: wheezing is better, pt state she feel better continue solu-metrol, and reduce dosage of solu-medrol Duoneb continue monitor pt is wheezing, SOB, hx of COPD, pt feel better after treatment of INH and steroid continue Duoneb solu-metrol O2 NC PRN, RT consult continue vital, tele monitor (2) Afib Conclusion/Plan: continue Coumadin, check PT/INR stable HR, continue Coumadin check PT/INR continue tele, vital monitor (3) Essential tremor Conclusion/Plan: continue support pt report she has essential tremor since she was 13 yrs. continue home regime, continue support (4) Polymyalgia rheumatica Conclusion/Plan: pain is good control. pt took Steroid 20 mg at home now pt has solu-metrol for COPD exacerbation, continue current treatment (5) HTN (hypertension) Conclusion/Plan: stable, continue vital monitor stable, resume home meds vital monitor (6) Asthma Conclusion/Plan: since stable, after treatment with steroid and INH Abulteral PRN (7) Osteoarthritis continue pain control
[2017-07-01 16:03] LABS: PT - PROTHROMBIN TIME 48.7 secs (9.9-12.6)
[2017-07-01 16:19] LABS: INR 4.6 (0.8-1.2)
[2017-07-02] MEDS: SODIUM CHLORIDE FLUSH 0.9% 10 ML SYRINGE IVP SCH (06:00)
[2017-07-02] MEDS: methylPREDNISolone SUCCINATE 40 MG/ML VIAL IVP SCH (06:00)
[2017-07-02 06:08] LABS: BASOPHILS % (AUTO) 0.2 %; HCT - HEMATOCRIT 41.5 % (37.0-47.0); HGB - HEMOGLOBIN 13.4 g/dL (12.0-16.0); LYMPHOCYTES # (AUTO) 0.4 10^3/uL (1.5-3.5); MEAN CORPUSCULAR HEMOGLOBIN 28.3 pg (27.0-31.0); MEAN CORPUSCULAR HGB CONC 32.1 g/dL (32.0-36.0); MEAN CORPUSCULAR VOLUME 88.1 fL (81.0-99.0); MEAN PLATELET VOLUME 7.8 fL (7.9-10.8); MONOCYTES # (AUTO) 0.5 10^3/uL (0.0-1.0); MONOCYTES % (AUTO) 4.4 %; NEUTROPHILS # (AUTO) 10.1 10^3/uL (1.5-6.6); NEUTROPHILS % (AUTO) 91.4 %; RED BLOOD COUNT 4.71 10^6/uL (4.20-5.40); RED CELL DISTRIBUTION WIDTH 13.9 % (12.0-15.0)
[2017-07-02 06:11] LABS: PT - PROTHROMBIN TIME 50.9 secs (9.9-12.6)
[2017-07-02 06:20] LABS: BILIRUBIN,TOTAL 0.4 mg/dL (0.2-1.0); CALCIUM 9.3 mg/dL (8.5-10.3); CREATININE 0.9 mg/dL (0.4-1.0); POTASSIUM 3.9 mmol/L (3.5-5.0); TOTAL PROTEIN 6.3 g/dL (6.7-8.2)
[2017-07-02 06:36] LABS: INR 4.8 (0.8-1.2)
[2017-07-02] MEDS ORDERED: methylPREDNISolone SUCCINATE 40 MG/ML VIAL IVP SCH (07:42)
[2017-07-02] MEDS: IPRATROPIUM/ALBUTEROL 3 ML NEB INH PRN (07:45)
[2017-07-02] MEDS ORDERED: MAGNESIUM OXIDE 400 MG TABLET PO SCH (08:00)
[2017-07-02] MEDS: POLYETHYLENE GLYCOL 3350 17 GM PACKET PO SCH (08:56)
[2017-07-02] MEDS: amLODIPine 5 MG TABLET PO SCH (08:58)
[2017-07-02] MEDS: MULTIVITAMIN TABLET PO SCH (08:58)
[2017-07-02] MEDS: BACLOFEN 10 MG TABLET PO SCH (08:59)
[2017-07-02] MEDS: AZITHROMYCIN 250 MG TABLET PO SCH (08:59)
[2017-07-02] MEDS: CETIRIZINE 10 MG TABLET PO SCH (09:00)
[2017-07-02] MEDS ORDERED: GARLIC 500 MG PO SCH (09:00)
[2017-07-02] MEDS ORDERED: CALCIUM CARBONATE CHEW 500 MG TABLET PO SCH (09:00)
[2017-07-02] MEDS ORDERED: CHOLECALCIFEROL 400 UNIT TABLET PO SCH (09:00)
[2017-07-02] MEDS ORDERED: TRIAMT/HCTZ 37.5 MG/25 MG CAPSULE PO SCH (09:00)
[2017-07-02] MEDS: FAMOTIDINE 20 MG TABLET PO SCH (09:00)
[2017-07-02] MEDS: LACTOB/S.THERMOPHL/BIFIDO CAPSULE PO SCH (09:01)
[2017-07-02] MEDS: METOPROLOL SUCCINATE 25 MG TABLET PO SCH (09:01)
[2017-07-02] MEDS: LISINOPRIL 5 MG TABLET PO SCH (09:01)
[2017-07-02] MEDS: LEFLUNOMIDE 20 MG PO SCH (09:02)
[2017-07-02] MEDS: SERTRALINE 50 MG TABLET PO SCH (09:03)
[2017-07-02] MEDS: HOPS PO SCH (09:16)
[2017-07-02] MEDS: BERBERINE PO SCH (09:16)
[2017-07-02] MEDS: VIT D3 VIT K PO SCH (09:16)
--- NOTE | 2017-07-02 11:13 | Discharge Plan ---
Discharge Plan Disposition: 01 Home, Self Care Condition: Stable Prescriptions: Azithromycin [Zithromax] 250 mg PO DAILY #3 tablet Diet: Cardiac Activity Restrictions: Activity as Tolerated Shower Restrictions: No Weight Bearing: Full Weight Additional Instructions or Follow Up instructions: May follow up PCP in three days and check PT/INR. Pt's warfarin may hold, due to over therapeutic PT/INR, until pt is seen by her PCP. Follow-Up Care: [facility], [facility], [facility] No Smoking: If you smoke, Please STOP! Call for help. Follow-up with: Joby Wisdom MD [Primary Care Provider] -
--- NOTE | 2017-07-02 11:38 | DISCHARGE SUMMARY ---
Discharge Summary Admit Date: 07/01/17 Discharge Date: 07/02/17 Discharging Provider: LYNN Primary Care Provider: Dr. Joby Wisdom Condition at Discharge: Stable Discharge Disposition: 01 Home, Self Care Discharge Facility Name: Home - DIAGNOSES Admission Diagnoses: (1) COPD exacerbation (2) Afib (3) Essential tremor (4) Polymyalgia rheumatica (5) HTN (hypertension) (6) Asthma (7) Osteoarthritis (8) obesity (9) bronchitis Discharge Diagnoses with Status of Each Condition: (1) COPD exacerbation well control. Now SO2 98% on room air. will continue home regime, follow up PCP management (2) Afib stable (3) Essential tremor chronic, stable (4) Polymyalgia rheumatica stable, follow home regime, and PCP management (5) HTN (hypertension) stable (6) Asthma stable (7) Osteoarthritis stable (8) obesity stable (9) bronchitis continue three days antibiotics (10) over therapeutic anticoagulation status today PT/INR 50/4.8.hold Warfarin to 07/04/17 until have PT/INR test and see PCP. PT/INR Test forum is signed and given to pt - HPI History of Present Illness: please refer from my HPI on 06/30/17 as the following: This is a 77-year-old female with a past medical history significance for COPD, essential tremor, polymyalgia Rheumatica, Obesity, HTN, AFib with Coumadin, Asthma, GERD, Chronic hearing loss, Depression, Osteoarthritis, Osteoporsis, Fibromyalgia, who present ER for evaluation of wheezing, shortness of breathing, Cough. Patient report she came to ER several days ago, she got the treatment but she feel not better. She report she was unable to walk more than a few steps without stopping. She report she used nebulizer and steroids at home. She report some chest tightness from anterior radiated to her back. She report cough without much sputum. She denies fever, chill, night sweating. She denies headache, abdominal pain, nausea, vomiting, diarrhea. No dysuria, hematuria, vision issue. Lab test reveals elevated WBC to 14.1. CXR is unremarkable. Pt is admitted for evaluation of COPD exacerbation. - HOSPITAL COURSE Hospital Course: Pt is admitted for COPD exacerbation. Pt was treated with IVF steroid, and INH and RT. Pt's breathing condition has great improved. SO2 98% on room air without fever, chill. Pt also has over therapeutic anticoagulation status. PT/ INR is 50/4.8 today. Pt is advised to have PT/INR test on 07/04/17, Warfarin is hold until pt has PT/INR test and been seen by her PCP. Pt request social help. The social media marketing manager discussed with pt all options. All pt's questions are answered. - ALLERGIES Allergies/Adverse Reactions: Allergies Allergy/AdvReac Type Severity Reaction Status Date / Time epinephrine Allergy Severe Respiratory Verified 06/30/17 12:58 codeine [Codeine] Allergy Intermediate Hives Verified 06/30/17 12:58 hydrocodone bitartrate * Allergy Intermediate Hives Verified 06/30/17 12:58 [From Vicodin] morphine Allergy Intermediate Hives Verified 06/30/17 12:58 oxycodone HCl * Allergy Intermediate Hives Verified 06/30/17 12:58 [From Percocet] Sulfa (Sulfonamide Allergy Mild Rash Verified 06/30/17 12:58 Antibiotics) Penicillins Allergy Unknown unsure Verified 06/30/17 12:58 methotrexate Allergy Unknown Verified 06/30/17 12:58 All Narcotics Allergy Intermediate Hives Uncoded 06/30/17 12:58 - MEDICATIONS Home Medications: Ambulatory Orders Medication Instructions Recorded Confirmed Lisinopril 10 mg PO DAILY 05/09/13 06/30/17 Multivitamin [Multivitamins] 1 each PO DAILY 05/09/13 06/30/17 Sertraline [Zoloft] 100 mg PO 2100 05/09/13 06/30/17 amLODIPine [Norvasc] 10 mg PO DAILY 05/09/13 06/30/17 Bacillus Coagulans [Probiotic] 1 each PO DAILY 04/21/16 06/30/17 Albuterol 2.5 mg INH Q4H PRN #30 neb 06/27/17 06/30/17 predniSONE [Deltasone] 60 mg PO DAILY 5 Days tablet 06/27/17 06/30/17 Baclofen 10 mg PO TID PRN 06/30/17 07/01/17 Benzonatate 100 mg PO TID PRN 06/30/17 06/30/17 Cetirizine [ZyrTEC] 10 mg PO DAILY 06/30/17 06/30/17 Ipratropium/Albuterol Sulfate 3 ml INH Q6H PRN 06/30/17 06/30/17 [Iprat-Albut 0.5-3(2.5) mg/3 ml] Leflunomide 20 mg PO DAILY 06/30/17 06/30/17 Magnesium Oxide 500 mg PO DAILY 06/30/17 06/30/17 Metoprolol Succinate 75 mg PO DAILY PM 06/30/17 06/30/17 Beclomethasone 80 Mcg [Qvar 80] 1 puffs INH BID 07/01/17 07/01/17 Calcium Carbonate/Vitamin D3 1 each PO DAILY 07/01/17 07/01/17 [Calcium 600-Vit D3 400 Tablet] Garlic 500 mg PO DAILY 07/01/17 07/01/17 Triamterene/Hydrochlorothiazid 1 tab PO DAILY 07/01/17 07/01/17 [Triamterene-Hctz 37.5-25 mg Tb] Vitamin B Complex 1 each PO DAILY 07/01/17 07/01/17 Azithromycin [Zithromax] 250 mg PO DAILY #3 tablet 07/02/17 - PHYSICAL EXAM AT DISCHARGE General Appearance: positive: No acute distress, Alert. negative: Lethargic Eyes Bilateral: positive: Normal inspection, PERRL, No lid inflammation, Conjunctivae nml ENT: positive: ENT inspection nml, Pharynx nml, No signs of dehydration. negative: Purulent nasal drainage, Pharyngeal erythema, Oral lesions Neck: positive: Nml inspection, Thyroid nml, Trachea midline. negative: Thyromegaly, Lymphadenopathy (R), Lymphadenopathy (L), Stiff neck, Carotid bruit , Swelling/bruising, Tracheal deviation Respiratory: positive: Chest non-tender, No respiratory distress, Breath sounds nml. negative: Wheezes, Rales, Rhonchi Cardiovascular: positive: Regular rate & rhythm, No murmur, No gallop. negative : Extrasystoles, Tachycardia, Bradycardia, Systolic murmur, Diastolic murmur Peripheral Pulses: positive: 2+ Abdomen: positive: Non-tender, Nml bowel sounds, No distention. negative: Tenderness, Guarding, Rebound Back: positive: Nml inspection. negative: CVA tenderness (R), CVA tenderness (L ) Skin: positive: Color nml, No rash, Warm, Dry. negative: Cyanosis, Diaphoresis , Pallor, Skin rash Extremities: positive: Non-tender, Full ROM, Nml appearance. negative: Calf tenderness, Joint swelling, Jose's sign/cords Neurologic/Psychiatric: positive: Oriented x3, Motor nml, Sensation nml, Mood/ affect nml. negative: Sensory loss, Facial droop, Slurred/abnml speech, Depressed mood/affect - LABS Result Diagrams: 07/02/17 05:52 07/02/17 05:52 - FOLLOW UP Follow Up: May follow up PCP in three days. Pt is advised to have PT/INR test on 07/04/17, Warfarin is hold until pt has PT/ INR test and been seen by her PCP. The PT/INR test forum is given to pt.
[2017-07-02 12:45] VITALS: BP 146/74
== END 2017-07-02 14:10 | disposition home or self-care (01) | DRG 191 ==
LOC: EDUNIT# → ED 12:51 → OBS 15:36 → OBSVTOIN 07-01 10:21 → MS2 07-01 11:43 → OBS 07-01 13:34 → MS2 07-01 14:39
PROVIDERS: ADMIT Nurse Practitioner Gerontology; ATTEND Nurse Practitioner Gerontology
DX: J44.0 Chronic obstructive pulmonary disease with (acute) lower respiratory infection (principal); Z68.42 Body mass index [BMI] 45.0-49.9, adult; J20.9 Acute bronchitis, unspecified; J44.1 Chronic obstructive pulmonary disease with (acute) exacerbation; I48.91 Unspecified atrial fibrillation; G25.0 Essential tremor; M35.3 Polymyalgia rheumatica; M79.7 Fibromyalgia; I10 Essential (primary) hypertension; F32.9 Major depressive disorder, single episode, unspecified; E66.9 Obesity, unspecified; K21.9 Gastro-esophageal reflux disease without esophagitis; M19.90 Unspecified osteoarthritis, unspecified site; M81.0 Age-related osteoporosis without current pathological fracture; H91.90 Unspecified hearing loss, unspecified ear; Z66 Do not resuscitate; Z79.01 Long term (current) use of anticoagulants; Z79.51 Long term (current) use of inhaled steroids; Z79.52 Long term (current) use of systemic steroids
CPT/HCPCS: 36415; 71010; 80053; 83690; 83735; 84484; 85025; 85610; 93005; 94640; 96360; 96361; 96372; 96374; 96376; 99283; 99284; 99285

== ENCOUNTER 2017-07-04 11:52 | Outpatient (CLI) | payer MEDICARE, BC ==
[2017-07-04 12:55] LABS: INR 2.2 (0.8-1.2); PT - PROTHROMBIN TIME 23.6 secs (9.9-12.6)
== END 2017-07-04 11:53 | disposition home or self-care (01) ==
LOC: LAB 11:52
PROVIDERS: ATTEND Internal Medicine
DX: R79.1 Abnormal coagulation profile (principal)
CPT/HCPCS: 36415; 85610

== ENCOUNTER 2017-07-20 11:41 | Outpatient (CLI) | payer MEDICARE, BC ==
--- NOTE | 2017-07-21 09:32 | CT Report ---
THORACIC SPINE CT: 07/20/2017 COMPARISON: Two-view chest 06/27/2017. INDICATION: Persistent chest wall and thoracic back pain. TECHNIQUE: Noncontrast axial imaging of the thoracic spine with coronal and sagittal reformats was performed. In accordance with CT protocol optimization, one or more of the following dose reduction techniques were utilized for this exam: automated exposure control, adjustment of mA and/or KV based on patient size, or use of iterative reconstructive technique. FINDINGS: There is a rdzujleb-ov-qteuyr compression fracture of the T5 vertebral body. This appears progressed compared to the prior chest radiograph. There are [id number] degenerative changes of the thoracic spine in other regards. There are dense atherosclerotic calcifications of the thoracic aorta and coronary arteries. Soft tissues appear otherwise unremarkable. IMPRESSION: T5 VERTEBRAL BODY COMPRESSION FRACTURE HAS PROGRESSED COMPARED TO THE CHEST RADIOGRAPHS OF 06/27/2017. JOB #: [id number] EXT JOB #: [id number] JANICE
== END 2017-07-20 11:42 | disposition home or self-care (01) ==
LOC: DI 11:41
PROVIDERS: ATTEND Family Medicine
DX: M48.54XA Collapsed vertebra, not elsewhere classified, thoracic region, initial encounter for fracture (principal); M81.0 Age-related osteoporosis without current pathological fracture
CPT/HCPCS: 72128

== ENCOUNTER 2017-10-20 10:27 | Outpatient (CLI) | payer MEDICARE, BC ==
--- NOTE | 2017-10-23 12:24 | DEXA Report ---
DEXA SCAN: 10/20/2017 CLINICAL INDICATION: Osteoporosis. TECHNIQUE: Dual energy x-ray absorptiometry (DXA) was performed on a [employer] system. Regions measured are the AP spine, femoral neck, and, if needed, forearm. COMPARISON: None. In accordance with the International Society for Clinical Densitometry (ISCD) guidelines, data from previous exams may be reanalyzed using current recommendations and techniques. This is done to allow a more accurate basis for comparison with the current study. FINDINGS Data for the lumbar spine is as follows: REGION BMD (g/cm/cm) T-SCORE Z-SCORE L1 0.797 -2.8 -2.1 L2 0.823 -3.1 -2.5 L3 0.838 -3.0 -2.4 L4 0.828 -3.1 -2.5 L1-L4 0.821 -3.0 -2.3 NOTE: All evaluable vertebrae are used for classification. Data for the hip is as follows: REGION BMD (g/cm/cm) T-SCORE Z-SCORE Neck 0.700 -2.4 -1.1 TOTAL 0.708 -2.4 -1.3 NOTE: The femoral neck or total proximal femur, whichever is lowest, is used for classification. IMPRESSION WHO CLASSIFICATION BASED ON THE INTERNATIONAL REFERENCE STANDARD IS OSTEOPOROSIS. FRACTURE RISK IS HIGH. RECOMMENDATION: Patients with diagnosis of osteoporosis or osteopenia should have regular bone mineral density assessment. For those eligible for Medicare, routine testing is allowed once every 2 years. Testing frequency can be increased for patients who have rapidly progressing disease or for those who are receiving medical therapy to restore bone mass. COMMENT World Health Organization (WHO) definitions for osteoporosis and osteopenia: NORMAL BMD: T-score at 1.0 or higher, fracture risk is low. OSTEOPENIA BMD: T-score between 1.0 and -2.5, fracture risk is increased. OSTEOPOROSIS BMD: T-score at 2.5 or lower, fracture risk high. National Osteoporosis Foundation recommends: 1. Obtain adequate dietary calcium (at least 1200 mg per day) and vitamin D (400 -800 international units per day). 2. Participate, as appropriate, in regular weightbearing and muscle- strengthening exercise. 3. Avoid tobacco use and reduce alcohol and caffeine intake. 4. For more detailed information see the website at www.NOF.org. TD: 10/20/2017 13:39 MTDD
== END 2017-10-20 10:28 | disposition home or self-care (01) ==
LOC: DI 10:27
PROVIDERS: ATTEND Internal Medicine
DX: M81.0 Age-related osteoporosis without current pathological fracture (principal)
CPT/HCPCS: 77080

== ENCOUNTER 2017-11-17 12:05 | Outpatient (CLI) | payer MEDICARE, BC ==
--- NOTE | 2017-11-17 15:05 | MRI Report ---
EXAM: MRI LUMBAR SPINE WITHOUT CONTRAST EXAM DATE: 11/17/2017 02:04 PM. CLINICAL HISTORY: Low back pain, pain in thoracic spine. COMPARISON: MRI thoracic spine same date. MRI lumbar spine 04/24/2012. TECHNIQUE: Multiplanar, multisequence T1-weighted and fluid-sensitive sequences of the lumbar spine w ithout contrast. Other: None. FINDINGS: A T2 hypointense focus in the gallbladder is suspicious for a cholelithiasis. Numbering assumes 5 non-rib bearing lumbar-type vertebral bodies. No suspicious marrow replacement is identified in the lumbar vertebral bodies. No loss of vertebral body height is present in the lumbar vertebral bodies. The distal tip of the con us medullaris is seen to the level of the L2 inferior endplate. Scattered areas of vertebral body hemangioma formation are noted. Grade 1 anterolisthesis of L4 relative to L5 has increased measuring 5 mm on today's study and 2 mm o n the comparison study. T12 through L3: No posterior disk protrusion. L3-L4: A mild left and a minimal right posterior lateral disk protrusion are present. This is stable on the right and increased on the left. L4-L5: A mild posterior disk protrusion is seen. This has increased. There is a foraminal component b ilaterally. This has increased on the right and on the left. Mild bilateral foraminal stenosis has de veloped. L5-S1: No posterior disk protrusion is present. There is no central canal or foraminal stenosis. Facet/ligamentum flavum hypertrophy is seen throughout the lumbar spine. IMPRESSION: 1. Interval increase in the degree of anterolisthesis of L4 relative to L5. 2. Interval increase in a posterior disk protrusion at L4-L5 most evident involving the foraminal mar gin of the disk bilaterally with mild bilateral foraminal stenosis having developed at this level. 3. Slight progression of a posterolateral disk protrusion on the left at L3-L4. 4. No acute or subacute endplate infraction is present. 5. Suspect a cholelithiasis. Comment: The following findings are so common in adults without low back pain that while we report th eir presence, they must be interpreted with caution and in the context of the clinical situation. (Re cecily Roberts et al, Spine 2001) Prevalence of findings in patients without low back pain: Disk degeneration (any evidence): 92% Disk desiccation/T2 signal loss: 83% Disk height loss: 56% Disk bulge: 64% Disk protrusion: 32% Annular tear/high intensity zone: 38% [facility] Referring Provider Line: [phone] SITE ID: [id number]
--- NOTE | 2017-11-17 15:40 | MRI Report ---
EXAM: MRI THORACIC SPINE WITHOUT CONTRAST EXAM DATE: 11/17/2017 02:04 PM. CLINICAL HISTORY: Low back pain, pain in thoracic spine. COMPARISONS: CT thoracic spine 07/20/2017. MRI lumbar spine same date. TECHNIQUE: Multiplanar, multisequence T1-weighted and fluid-sensitive sequences of the thoracic spine from C7 to L1 without contrast. Other: None. FINDINGS: There is motion artifact on the examination. There is a severe compression deformity at T5. Artifact from polymethyl methacrylate in the T5 verteb ral body limits assessment of this vertebra. There is marrow edema involving the posterior aspect of the T5 vertebral body on the current study. This extends near the junction of the pedicle and vertebr al body. There is a moderate compression fracture centered on the superior aspect of the T6 vertebral body wit h a subtle fracture line seen inferior to the superior endplate. The fracture line extends near the j unction of the pedicle and vertebral body bilaterally. There is edema in the T6 vertebral body. There has been an increase in the degree of kyphosis centered over T5. There is no significant retropulsion of fracture fragments at T6. There is prominent dorsal epidural lipomatosis in the upper mid thoracic spine. There is mild central canal stenosis at the level of the T5 and T6 vertebral bodies. Accounting for artifact, no definite abnormal T2 signal is seen in the thoracic spinal cord. Posterior disk protrusions are present at T1-T2 and T7-T8. Degenerative disk disease is present at C5-C6 and C6-C7. IMPRESSION: 1. There is a moderate compression deformity with a fracture line beneath the superior endplate of T6 with marrow edema present in the T6 vertebral body. This is consistent with an acute to subacute com pression fracture. 2. There is marrow edema in the posterior aspect of the T5 vertebral body. It is uncertain if this re flects nonhealing of the patient's prior T5 fracture or if this reflects a new fracture posterior to the polymethylmethacrylate. 3. Interval increase in kyphosis centered over the T5 vertebral body. 4. No epidural hematoma is present. 5. No thoracic spinal cord contusion is present. [facility] Referring Provider Line: [phone] SITE ID: [id number]
== END 2017-11-17 12:06 | disposition home or self-care (01) ==
LOC: DI 12:05
PROVIDERS: ATTEND Orthopaedic Surgery
DX: M48.54XA Collapsed vertebra, not elsewhere classified, thoracic region, initial encounter for fracture (principal); M51.26 Other intervertebral disc displacement, lumbar region; M43.16 Spondylolisthesis, lumbar region; M47.896 Other spondylosis, lumbar region; M51.24 Other intervertebral disc displacement, thoracic region; M50.322 Other cervical disc degeneration at C5-C6 level; M40.294 Other kyphosis, thoracic region
CPT/HCPCS: 72146; 72148

== ENCOUNTER 2018-01-11 09:19 | Outpatient (CLI) | payer MEDICARE, BC ==
--- NOTE | 2018-01-12 11:03 | MRI Report ---
EXAM: MRI CERVICAL SPINE WITHOUT CONTRAST EXAM DATE: 01/11/2018 10:21 AM. CLINICAL HISTORY: Chronic neck pain. COMPARISONS: MRI of the cervical spine without contrast 02/10/2010. TECHNIQUE: Multiplanar, multisequence T1-weighted and fluid-sensitive sequences of the cervical spine without contrast. Other: None. FINDINGS: The images are degraded by motion. There is straightening of the normal cervical lordosis. There is a grade 1 anterolisthesis of C4 on C 5. There is a mild to moderate decrease in the height of the disk at C5-C6 and C6-C7 with endplate sp ondylosis. There are multiple disk bulges or disk osteophyte complexes which will be described in gre ater detail below. There are normal signal intensities demonstrated throughout the cervical spinal cord. The craniocervi maximilian junction is normal. There is a questionable left thyroid lobe nodule at the inferior aspect of the left thyroid lobe demo nstrated on the sagittal T2 STIR sequence measuring 15 mm (1, 601). Recommend correlation. Further ch aracterization can be obtained with thyroid ultrasound as deemed clinically appropriate. There is fluid intensity within multiple left mastoid air cells. The visualized portions of the poste rior fossa are unremarkable. C2-C3: There is mild left facet arthropathy. The remainder of the level is normal. There is no signif icant change at this level. C3-C4: There is mild left facet arthropathy and mild narrowing of the left neural foramen. There is n o significant disk bulge or central canal stenosis. There is no significant change at this level. C4-C5: There is ligamentum flavum hypertrophy. There is a small disk osteophyte complex abutting the sac. This combination produces a mild to moderate central canal stenosis. There is mild to moderate n arrowing of the left neural foramen. There is no significant change at this level. C5-C6: There is a small disk osteophyte complex with superimposed central disk osteophyte. There is m ild ligamentum flavum hypertrophy. There is a mild to moderate central canal stenosis. The uncoverteb ral hypertrophy produces moderate bilateral foraminal stenoses. The facets are normal. There is no si gnificant change at this level. C6-C7: There is a small disk osteophyte complex abutting the sac. There is mild ligamentum flavum hyp ertrophy. There is a mild central canal stenosis. The facets are normal. There is no significant fora cristhian stenosis. There is no significant change at this level. C7-T1: There is a minimal central protrusion of the disk producing a minimal central canal stenosis. The remainder of the level is normal. There has been slight progression of the protrusion of the disk . T1-T2: There is a small central extrusion of the disk producing a mild central canal stenosis. The re mainder of the level is normal. IMPRESSION: 1. The images are degraded by motion. 2. There is an unchanged disk osteophyte complex at C4-C5 producing a mild to moderate central canal stenosis. 3. There is an unchanged small disk osteophyte complex with superimposed central disk osteophyte at C 5-C6 producing a mild to moderate central canal stenosis and moderate bilateral foraminal stenosis. 4. There is an unchanged small disk osteophyte complex at C6-C7 producing a mild central canal stenos is. 5. There has been slight progression of the central protrusion of the disk at C7-T1 producing a minim al central canal stenosis. Referring Provider Line: [phone] SITE ID: [id number]
== END 2018-01-11 09:20 | disposition home or self-care (01) ==
LOC: DI 09:19
PROVIDERS: ATTEND Physician Assistant
DX: M54.2 Cervicalgia (principal); M25.78 Osteophyte, vertebrae
CPT/HCPCS: 72141

== ENCOUNTER 2018-05-15 08:52 | Outpatient (CLI) | payer MEDICARE, BC ==
--- NOTE | 2018-05-15 12:48 | CT Report ---
Reason: ACUTE MIDLINE THORACIC BACK PAIN Procedure Date: 05/15/2018 Accession Number: [id number] / [id number] Procedure: CT - Thoracic Spine W/O CPT Code: FULL RESULT: EXAM: CT THORACIC SPINE WITHOUT CONTRAST EXAM DATE: 05/15/2018 09:17 AM. CLINICAL HISTORY: ACUTE MIDLINE THORACIC BACK PAIN. COMPARISONS: MRI of the thoracic spine 11/17/2017. CT scan of the thoracic spine 07/20/2017. TECHNIQUE: Thin-section axial images were acquired of the thoracic spine from C7 to L1 without contrast. Post-processing: Coronal and sagittal reformats. Other: None. In accordance with CT protocol optimization, one or more of the following dose reduction techniques were utilized for this exam: automated exposure control, adjustment of mA and/or KV based on patient size, or use of iterative reconstructive technique. FINDINGS: Alignment: Mild kyphosis is seen centered at T5-T6. No spondylolisthesis Bones: Status post transpedicular vertebral augmentation is seen at T5 and T6. Moderate to marked wedge compression fracture of the T5 vertebral body is seen with mild compression of the T6 superior endplate. Barium impregnated polymethylmethacrylate is seen in the T5 and T6 vertebral bodies and left pedicles. Patchy extension into the T5-T6 disk space is seen. Patchy lobular extension into the posterior mediastinum anterior to the T6-T7 disk level is appreciated. No intraspinal extension is seen. No acute fracture is appreciated. Note is made of hemangioma in the T12 vertebral body. Disk Levels/Facets: C5-C6, C6-C7: Partially evaluated. Disk space narrowing and irregularity is seen. No stenosis. C7-T1: Unremarkable. T1-T2: Unremarkable. T2-T3: Unremarkable. T3-T4: Unremarkable. T4-T5: Unremarkable. T5-T6: Unremarkable. T6-T7: Unremarkable. Mild vacuum cleft phenomenon is seen anteriorly. T7-T8: Unremarkable. Patchy vacuum cleft phenomenon is seen. T8-T9: Unremarkable. Mild vacuum cleft phenomenon is seen anteriorly. T9-T10: Unremarkable. Minimal vacuum cleft phenomenon is seen anteriorly. T10-T11: Unremarkable. Minimal vacuum cleft phenomenon is seen anteriorly. T11-T12: Unremarkable. T12-L1: Unremarkable. Musculature: Normal. No fatty atrophy. Other: The visualized lungs, mediastinum, and abdominal cavity are unremarkable. Moderate vascular calcification is seen involving the visualized aorta, great vessels off the aorta, and coronary arteries. Moderate mitral valve annulus calcification is present. IMPRESSION: 1. No acute thoracic spine abnormality. 2. Old compression fractures and status post vertebral augmentation involving the T5 and T6 vertebral bodies. [facility]
== END 2018-05-15 08:53 | disposition home or self-care (01) ==
LOC: DI 08:52
PROVIDERS: ATTEND Orthopaedic Surgery
DX: M54.6 Pain in thoracic spine (principal)
CPT/HCPCS: 72128